=== PATIENT | female | born 1930 | race Caucasian/White ===

== ENCOUNTER → 2016-11-30 | Outpatient (CLI) | payer MEDICARE, OTHER, MEDICAID ==
[~2016-11-30] MED LIST: ALDACTONE 25MG25 M1 PO; AZILECT1 M1 PO; BACTRIM DS 8001 TAB PO; CEFTIN500 MG PO; LEVAQUIN 5500 MG/TA1 PO; LEVAQUIN 750MG750 M1 PO; MACROBID100 M1 PO; MELOXICAM; MIRAPEX ER1.5 MG PO; NASAL SALINE 4545 ML NS; PERCOCET 325 MG1 TA2 PO; SINEMET 10/101 UDTAB; SINEMET CR 50 M1 TER PO; TYLENOL 325MG325 MG PO; TYLENOL W/COD1 UDTAB PO; VERAPAMIL; VERAPAMIL 440 MG/TAB PO; VERELAN180 MG; VERELAN180 MG PO; VITAMINC1000TA PO; ZOFRAN 4MG T4 MG/TAB PO; ZOLOFT 25MG25 MG; ZOLOFT 25MG25 MG PO; ZOLOFT 50MG50 MG PO
[2016-11-30 18:49] LABS: CALCIUM 9.1 mg/dL (8.4-10.2); CREATININE, serum 1.12 mg/dL (0.52-1.25); POTASSIUM 4.3 mmol/L (3.4-5.0)
== END ==
LOC: ZLAB.STJ 12:24
PROVIDERS: Internal Medicine
DX: N18.3 Chronic kidney disease, stage 3 (moderate) (principal)

== ENCOUNTER → 2017-03-28 | Outpatient (CLI) | payer MEDICARE, OTHER, MEDICAID ==
[2017-03-28 13:05] LABS: CALCIUM 9.1 mg/dL (8.4-10.2); CREATININE, serum 1.05 mg/dL (0.52-1.25); POTASSIUM 4.9 mmol/L (3.4-5.0)
[2017-03-28 13:33] LABS: THYROID STIMULATING HORMONE 2.2 uIU/mL (0.465-4.680)
== END ==
LOC: ZLAB.STJ 12:21
PROVIDERS: Internal Medicine
DX: I10 Essential (primary) hypertension (principal); E56.9 Vitamin deficiency, unspecified; Z13.9 Encounter for screening, unspecified

== ENCOUNTER → 2017-08-23 | Outpatient (CLI) | payer MEDICARE, OTHER, MEDICAID | LOC: COL.RAD 11:15 | DX: D17.1 Benign lipomatous neoplasm of skin and subcutaneous tissue of trunk (principal) ==

== ENCOUNTER 2017-11-18 10:42 | Emergency (ER) | payer MEDICARE, OTHER, MEDICAID ==
[2017-11-18 10:53] VITALS: TEMP 98.5
[2017-11-18 11:25] LABS: BASO # 0.1 (0.0-0.2); BASO % 0.9 % (0.0-2.0); EOS # 0.1 (0.0-0.7); EOS % 0.9 % (0-4.0); GRAN # 5.9 (1.4-6.5); GRAN % 73.2 % (42.2-75.2); HEMATOCRIT 37.2 % (37.0-47.0); LYMPH # 1.5 (1.2-3.4); LYMPH % 18.7 % (20.0-51.0); MEAN CELL VOLUME 98 fl (80.0-100.0); MEAN CORPUSCULAR HEMOGLOBIN 30 pg (27.0-31.0); MEAN CORPUSCULAR HGB CONC 31 g/dl (33.0-37.0); MEAN PLATELET VOLUME 10.5 fl (7.4-10.4); MONO # 0.5 (0.1-0.6); MONO % 5.6 % (1.7-9.3); PLATELET COUNT 238 K/mm3 (130-400); RED BLOOD COUNT 3.81 M/mm3 (4.10-5.30); REDCELL DISTRIBUTION WIDTH-CV 15.8 % (11.5-14.5)
[2017-11-18 11:28] LABS: HEMOGLOBIN 11.6 g/dl (12.5-16.0)
[2017-11-18 11:31] LABS: PROTHROMBIN TIME 11.5 SECONDS (9.7-12.8)
[2017-11-18 11:34] LABS: PARTIAL THROMBOPLASTIN TIME 28.7 SECONDS (26.0-37.0)
[2017-11-18 11:38] LABS: ALANINE AMINOTRANSFERASE 19 U/L (9-52); ALBUMIN 3.9 gm/dL (3.5-5.0); ALKALINE PHOSPHATASE 106 U/L (50-136); ANION GAP 10 mmol/L (7-16); AST,SGOT 24 U/L (15-37); BLOOD UREA NITROGEN 24 mg/dL (7-17); CALCIUM 8.9 mg/dL (8.4-10.2); CARBON DIOXIDE 23 mmol/L (22-30); CHLORIDE 112 mmol/L (98-107); CREATININE, serum 1.24 mg/dL (0.52-1.25); GLUCOSE 119 mg/dL (74-106); SODIUM 145 mmol/L (137-145); TOTAL PROTEIN 7.9 gm/dL (6.4-8.2)
[2017-11-18 11:51] LABS: TROPONIN-I < 0.012 ng/mL (0.000-0.034)
[2017-11-18] MEDS ORDERED: ISOPTIN SR240 MG PO (12:03)
[2017-11-18] MEDS ORDERED: FLONASEALLERGY NS (12:03)
[2017-11-18] MEDS ORDERED: REQUIP 1MG T1 MG/TAB PO (12:04)
[2017-11-18] MEDS ORDERED: MEGA MULTIVITAM1 TAB PO (12:05)
[2017-11-18 14:21] VITALS: BP 136/62; PULSE 73
== END 2017-11-18 14:42 | disposition home or self-care (01) ==
LOC: COL.ER 10:42
PROVIDERS: Emergency Medicine
DX: I44.1 Atrioventricular block, second degree (principal); I10 Essential (primary) hypertension; G20 Parkinson's disease; F03.90 Unspecified dementia, unspecified severity, without behavioral disturbance, psychotic disturbance, mood disturbance, and anxiety; Z90.89 Acquired absence of other organs

== ENCOUNTER → 2017-12-16 | Outpatient (CLI) | payer MEDICARE, OTHER, MEDICAID ==
[~2017-12-16] MED LIST changes: +FLONASEALLERGY NS; +ISOPTIN SR240 MG PO; +MEGA MULTIVITAM1 TAB PO; +REQUIP 1MG T1 MG/TAB PO
[2017-12-16 14:53] LABS: BASO % 0.3 % (0.0-2.0); EOS # 0.1 (0.0-0.7); EOS % 0.5 % (0-4.0); GRAN # 9.6 (1.4-6.5); GRAN % 89.1 % (42.2-75.2); LYMPH # 0.8 (1.2-3.4); LYMPH % 6.9 % (20.0-51.0); MEAN CELL VOLUME 95 fl (80.0-100.0); MEAN CORPUSCULAR HGB CONC 32 g/dl (33.0-37.0); MEAN PLATELET VOLUME 10.2 fl (7.4-10.4); MONO # 0.3 (0.1-0.6); MONO % 2.5 % (1.7-9.3); PLATELET COUNT 250 K/mm3 (130-400); RED BLOOD COUNT 3.66 M/mm3 (4.10-5.30); REDCELL DISTRIBUTION WIDTH-CV 15.2 % (11.5-14.5)
[2017-12-16 14:56] LABS: HEMATOCRIT 34.6 % (37.0-47.0); HEMOGLOBIN 11.1 g/dl (12.5-16.0); MEAN CORPUSCULAR HEMOGLOBIN 30 pg (27.0-31.0)
[2017-12-16 15:08] LABS: ALBUMIN 3.3 gm/dL (3.5-5.0); BILIRUBIN,TOTAL 3.3 mg/dL (0.0-1.0); CALCIUM 8.4 mg/dL (8.4-10.2); CREATININE, serum 1.28 mg/dL (0.52-1.25); POTASSIUM 3.3 mmol/L (3.4-5.0); TOTAL PROTEIN 7.1 gm/dL (6.4-8.2)
== END ==
LOC: ZLAB.STJ 14:44
PROVIDERS: Internal Medicine
DX: R17 Unspecified jaundice (principal); R50.9 Fever, unspecified

== ENCOUNTER → 2017-12-17 | Outpatient (CLI) | payer MEDICARE, OTHER, MEDICAID ==
[2017-12-17 14:47] LABS: BILIRUBIN,DIRECT 1.4 mg/dL (0.0-0.4)
== END ==
LOC: ZLAB.STJ 14:26
PROVIDERS: Internal Medicine
DX: E80.7 Disorder of bilirubin metabolism, unspecified (principal)

== ENCOUNTER → 2017-12-19 | Outpatient (CLI) | payer MEDICARE, OTHER, MEDICAID | LOC: COL.RAD 10:30 | DX: K80.20 Calculus of gallbladder without cholecystitis without obstruction (principal); I71.4 Abdominal aortic aneurysm, without rupture ==

== ENCOUNTER → 2017-12-27 | Outpatient (REF) ==
[2017-12-27 16:38] LABS: CALCIUM 7.9 mg/dL (8.4-10.2); CREATININE, serum 1.38 mg/dL (0.52-1.25)
== END ==
LOC: ZLAB.STJ 15:59
PROVIDERS: Internal Medicine
DX: Z01.89 Encounter for other specified special examinations (principal)